=== PATIENT | female | born 2000 ===

== ENCOUNTER 2019-02-10 19:01 | Emergency (ER) | payer OTHER, BC ==
[2019-02-10 19:52] VITALS: BP 131/74; PULSE 95; RESP 16; TEMP 98.4; O2SAT 98
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
== END 2019-02-10 21:45 | disposition home or self-care (01) ==
LOC: H.ER 19:01
DX: M54.2 Cervicalgia (principal); M54.6 Pain in thoracic spine; G44.209 Tension-type headache, unspecified, not intractable; V43.62XA Car passenger injured in collision with other type car in traffic accident, initial encounter
CPT/HCPCS: 96372; 99282; J1885